=== PATIENT | female | born 1930 | race Caucasian/White ===

== ENCOUNTER → 2017-05-10 | Outpatient (CLI) | payer MEDICARE, BC ==
[~2017-05-10] MED LIST: ACTONEL PO; ADVIL200 M2 PO; ALDACTONE PO; AMLODIPINE BES2.5 MG PO; AMLODIPINE BESYL5 MG PO; ASPIRIN PO; ASPIRIN81 M1 PO; ASPIRINEC PO; ATIVAN PO; ATIVAN2 MG PO; AVALIDE 150-12.1 TAB PO; AVALIDE PO; AVAPRO PO; AZOR 5/40 MG TA1 TAB PO; AZOR PO; B COMPLEX1 TAB PO; BACTRIM 400-801 TA1 PO; BACTRIM DS TABL1 TA1 PO; BACTRIM DS TABL1 TAB PO; BUSPIRONE HCL10 MG PO; CELEXA PO; CIPRO PO; CIPRO250 MG PO; COLACE PO; DARVOCET-N 1001 TAB PO; ELMIRON100 MG PO; FLAGYL PO; FLAGYL250 M1 PO; FLOMAX0.4 M1 PO; FLOMAX0.4 MG PO; FOSAMAX70 MG PO; IRON1 TA1 PO; LORAZEPAM1 MG PO; MACROBID 100 M100 MG PO; MACROBID100 MG PO; METROGEL-VAGINA70 GM VAG; MIRALAX17 GM PO; OSTEO BIFLEX; PHENERGAN PO; PHENERGAN12.5 MG PO; PHENERGAN25 MG PO; PRAVACHOL20 MG PO; PRAVASTATIN SOD40 MG; PRAVASTATIN SOD40 MG PO; PREMARIN VAG CR45 GM VAG; PROSED-DS TABL1 EACH PO; PYRIDIUM; PYRIDIUM PO; PYRIDIUM100 MG PO; SEPTRA; STOOL SOFTNER PO; TOPROL XL 50 MG50 MG PO; TOPROL XL PO; TYLENOL #3; TYLENOL #3 PO; TYLENOL80 MG/0.8; VICODIN 5/1 TAB 5/50 PO; VIT B 12 IM; VITAMIN D350000 UNIT; VITAMIN D400 UNI2 PO; VITAMIN D50000 UNIT PO; VYTORIN 10/20 T1 TAB PO; ZOLOFT50 MG PO; [UNRECOGNIZED DRUG - CODE] PO
== END | disposition home or self-care (01) ==
LOC: CSSDAY 10:00
DX: M81.0 Age-related osteoporosis without current pathological fracture (principal)
CPT/HCPCS: 96372; J0897